=== PATIENT | female | born 1945 | race Hispanic/Latino ===

== ENCOUNTER 2018-09-09 12:56 | Emergency (ER) | payer MEDICARE ==
[2018-09-09] MEDS ORDERED: KETOROLAC TROMETHAMINE 15MG/ML ONE (14:26)
[2018-09-09] MEDS ORDERED: DEXAMETHASONE SOD PHOSPHATE 4 MG/ML 1ML VIAL ONE (14:26)
== END 2018-09-09 15:14 | disposition home or self-care (01) ==
LOC: EDH 12:56
DX: M25.562 Pain in left knee (principal); I10 Essential (primary) hypertension; E78.5 Hyperlipidemia, unspecified; E11.9 Type 2 diabetes mellitus without complications
CPT/HCPCS: 73562; 96372 ×2; 99283; J1100; J1885

== ENCOUNTER 2020-02-11 | Inpatient (IN) | payer MEDICARE | END 2020-02-13 18:25 | disposition home or self-care (01) | DRG 177 | PROVIDERS: ADMIT Hospitalist ==